=== PATIENT | female | born 1980 | race Caucasian/White ===

== ENCOUNTER 2020-04-06 12:21 | Emergency (ER) | payer MEDICAID ==
[~2020-04-06] VITALS: Ht 162.6 cm; Wt 76.7 kg
[2020-04-06] MEDS ORDERED: PROTONIX20 MG PO (12:46)
[2020-04-06] MEDS ORDERED: MYLANTA MAXIMU355 ML PO (12:46)
[2020-04-06] MEDS ORDERED: AMITRIPTYLINE H25 MG PO (12:47)
[2020-04-06] MEDS ORDERED: ONDANSETRON ODT8 MG PO (15:00)
== END 2020-04-06 15:15 | disposition home or self-care (01) ==
LOC: ED 12:21
DX: R13.10 Dysphagia, unspecified (principal); Z87.891 Personal history of nicotine dependence; Z79.899 Other long term (current) drug therapy
CPT/HCPCS: 71046; 80053; 83690; 85025; 96361; 96374; 99284-25; J2405; J7030

== ENCOUNTER → 2020-08-09 | Emergency (ER) | payer OTHER ==
[~2020-08-09] VITALS: Ht 162.6 cm; Wt 70.3 kg
[~2020-08-09] MED LIST: AMITRIPTYLINE H25 MG PO; CARAFATE1 GM PO; MYLANTA MAXIMU355 ML PO; ONDANSETRON ODT8 MG PO; PROTONIX20 MG PO
== END ==
LOC: ED 13:52
DX: K21.9 Gastro-esophageal reflux disease without esophagitis (principal); K64.9 Unspecified hemorrhoids; R11.2 Nausea with vomiting, unspecified; Z79.899 Other long term (current) drug therapy
CPT/HCPCS: 80053; 83690; 84703; 85025; 85610; 85730; 86850; 86900; 86901; 99284

== ENCOUNTER 2020-11-10 12:08 | Emergency (ER) | payer OTHER ==
[~2020-11-10] VITALS: Ht 162.6 cm; Wt 70.3 kg
--- OUTSIDE RECORDS SUMMARY | 2020-11-10 12:10 | XMS ---
PreManage Notification: SIENNA ESTRADA Security Passenger Service Representative Events No recent Security Events currently on file CRITERIA MET - [facility] - 2 Visits in 30 Days [facility]: Federally Qualified 11/19/2019-[facility] ([facility]) PHONE: Unknown BRINDA BRANNON Nurse Practitioner: 01/12/2020-Current PHONE: [phone] GIACOMO VIVEROS Clinic/Center: Federally Qualified 06/18/2019-[facility] ([facility]) HEALTH - N PHONE: [phone] Bess has no Care Guidelines for this patient. E.D. VISIT COUNT (12 MO.) [address] [place] [address] K[facility] Shields TOTAL 4 NOTE: Visits indicate total known visits. ED/UCC VISIT TRACKING (12 MO.) 11/10/2020 12:08 [facility] TYPE: Emergency COMPLAINT: - LEFT SIDE NUMBNESS 10/20/2020 19:46 [facility] [place] TYPE: Emergency DIAGNOSES: 44859. HAND PAIN 67303. Contusion of left hand, initial encounter 00820. Strain of unspecified muscle, fascia and tendon at wrist and hand level, left hand, initial encounter 08/09/2020 13:53 [facility] TYPE: Emergency COMPLAINT: - DIZZINESS, ABNORMAL LABS DIAGNOSES: - Unspecified hemorrhoids - Nausea with vomiting, unspecified - Gastro-esophageal reflux disease without esophagitis - Dizziness and giddiness - Other fdc (current) drug therapy 04/06/2020 12:22 [facility] TYPE: Emergency COMPLAINT: - DIFFICULTY SWALLOWING DIAGNOSES: - Personal history of nicotine dependence - Dysphagia, unspecified - Other termination clerk (current) drug therapy INPATIENT VISIT TRACKING (12 MO.) No inpatient visits to display in this time frame [email or web address]
[2020-11-10] MEDS ORDERED: NEXIUM 24HR20 M2 PO (12:24)
[2020-11-10] MEDS ORDERED: CYCLOBENZAPRINE10 MG PO (14:30)
== END 2020-11-10 14:38 | disposition home or self-care (01) ==
LOC: ED 12:08
DX: R20.2 Paresthesia of skin (principal)
CPT/HCPCS: 70553; 99284-25; A9577